=== PATIENT | female | born 2005 | race Hispanic/Latino ===

== ENCOUNTER 2025-04-26 16:09 | Emergency (ER) | payer OTHER ==
[~2025-04-26] VITALS: Ht 154.9 cm; Wt 72.0 kg
[2025-04-26 17:04] LABS: KETONE, URINE AUTO RFX TRACE mg/dL (NEGATIVE); LEUKOCYTE ESTERASE UR AUTO RFX NEGATIVE (NEGATIVE); MUCUS, URINE RFX SMALL (NEGATIVE); NITRITE, URINE AUTO RFX NEGATIVE (NEGATIVE); RBC, URINE AUTO RFX 1 /HPF (0-3); SQUAM EPITHELIAL CELL UR AURFX 5 /HPF (0-6); WBC, URINE AUTO RFX 2 /HPF (0-3)
[2025-04-26 18:08] LABS: Trichomonas vaginalis (AMP) NOT DETECTED (NEGATIVE)
[2025-04-26 18:33] LABS: GC DNA AMPLIFICATION NEGATIVE (NEGATIVE)
[2025-04-26 18:53] VITALS: BP 119/78; TEMP 97.7; O2SAT 99
== END 2025-04-26 18:56 | disposition home or self-care (01) ==
LOC: M ED 16:09
DX: R35.0 Frequency of micturition (principal); Z91.02 Food additives allergy status